=== PATIENT | female | born 2005 | race Caucasian/White ===

== ENCOUNTER 2025-07-11 16:22 | Emergency (ER) | payer BC, MEDICAID ==
[~2025-07-11] VITALS: Ht 185.4 cm; Wt 61.9 kg
[2025-07-11 16:27] VITALS: BP 123/76; PULSE 87; TEMP 98.2; O2SAT 99
[2025-07-11 17:53] LABS: UA COLLECTION TYPE CLN CATCH MIDSTREAM
[2025-07-11 17:55] LABS: NITRITES, URINE POSITIVE (Neg); OCCULT BLOOD,URINE TRACE-INTACT (Neg)
[2025-07-11 17:56] LABS: LEUKOCYTE ESTERASE ,URINE SMALL (Neg)
[2025-07-11 17:58] LABS: MUCUS STRANDS MODERATE /LPF (Neg)
[2025-07-11 18:00] LABS: SQUAMOUS EPITHELIAL CELL,UR MANY /LPF (FEW)
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
[2025-07-11] MEDS ORDERED: CLON1TAB12 PO (19:38)
[2025-07-11] MEDS ORDERED: ARIP5TAB53 PO (19:38)
[2025-07-11 19:44] LABS: URINE HCG NEGATIVE (NEG)
[2025-07-11 19:46] VITALS: RESP 18
[2025-07-11] MEDS: LEVONORGESTREL 1.5MG tablet 1.5 MG TABLET PO ONE (19:52)
[2025-07-11] MEDS: TINIDAZOLE 500 MG TABLET PO ONE (19:52)
[2025-07-11] MEDS: CefTRIAXone 500MG IM Kit w/LIDOcaine (for pt below or = to 150kg) IM ONE (19:53)
== END 2025-07-11 22:35 | disposition home or self-care (01) ==
LOC: EEVIPCON 16:25 → ER 16:25
DX: T74.21XA Adult sexual abuse, confirmed, initial encounter (principal)
CPT/HCPCS: 81001; 81025; 96372; 99284; J0696